=== PATIENT | male | born 1940 | race American Indian/Alaskan Native ===

== ENCOUNTER 2019-03-18 10:10 | Outpatient (CLI) | payer MEDICARE ==
--- NOTE | 2019-03-19 10:48 | PET Report ---
PET/CT:03/18/19 10:10:00 CLINICAL: One cancer staging. RADIOPHARMACEUTICAL: 15.34mCi F18-FDG. COMPARISON: None. TECHNIQUE- Following intravenous injection of F-18 FDG and an approximately 60 minute uptake period, CT and PET images from the mid skull to the upper thighs were acquired with the patient in the fasted state. No contrast was administered. The CT protocol used for this PET CT study is designed for attenuation correction and anatomic localization of PET abnormalities. This environmental remediation consultant CT is not desired to produce and cannot replace, [id number] diagnostic CT scans with specific imaging protocols for different body parts and indications. Plasma glucose at the time of this test: 126g/dl. The standardized uptake values (SUV) are normalized to patient body weight and indicate the highest activity concentration (SUV max) in a given disease site. FINDINGS: Brain--Physiologic FDG uptake in the visualized regions of the brain. Neck--Physiologic FDG uptake the mucosal structures. No mass or lymphadenopathy. Chest--Physiologic FDG uptake in mediastinal blood pool and myocardium. Mild bilateral benign gynecomastia. Lungs--a spiculated FDG avid left upper lobe lung mass measures 4.2 x 3.8 x 4.1 cm with SUV 10.5. Additional non-FDG avid linear extensions to the anterior pleura measured 2.5 cm. The mass is contiguous to the aortic arch but does not invade the arch. No other lung mass. Pleura/pericardium--No abnormal uptake. No pleural effusion. Thoracic nodes--No abnormal uptake. No lymphadenopathy. Hepatobiliary--No abnormal uptake. Liver background SUV mean, as a reference for comparing FDG studies, is 3.8 . No liver mass. Spleen--No abnormal uptake. Pancreas--No abnormal uptake. Adrenal Glands--No abnormal uptake. Kidneys/Ureters/Bladder--No abnormal uptake. Abdominopelvic Nodes--No abnormal uptake. Bowel/Peritoneum/Mesentery--No abnormal uptake. Pelvic organs--No abnormal uptake. Bones/Soft Tissues--No abnormal uptake and no suspicious bone lesion. Other findings: IMPRESSION- 1. A 4.2 x 3.8 x 4.1 cm FDG avid left upper lobe bronchogenic carcinoma. 2. No evidence of leann, hepatic, adrenal or skeletal metastasis.
== END 2019-03-18 10:11 | disposition home or self-care (01) ==
LOC: PET 10:10
PROVIDERS: ATTEND Internal Medicine
DX: C34.12 Malignant neoplasm of upper lobe, left bronchus or lung (principal); E78.00 Pure hypercholesterolemia, unspecified; I10 Essential (primary) hypertension; I48.91 Unspecified atrial fibrillation; E78.5 Hyperlipidemia, unspecified; Z86.2 Personal history of diseases of the blood and blood-forming organs and certain disorders involving the immune mechanism
CPT/HCPCS: 78815; 82962; A9552